=== PATIENT | male | born 1970 | race Asian ===

== ENCOUNTER 2016-11-17 21:08 | Emergency (ER) | payer OTHER ==
[~2016-11-17] VITALS: Ht 160 cm; Wt 79.4 kg
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
[2016-11-17 21:10] VITALS: BP 156/97; PULSE 96; RESP 17; TEMP 98.3; O2SAT 100
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
--- NOTE | 2016-11-17 21:17 | NUR ---
at bedside examining pt
[2016-11-17 21:25] VITALS: BP 147/86; PULSE 92; RESP 18; TEMP 98.3; O2SAT 99
--- NOTE | 2016-11-17 21:25 | NUR ---
Patient given written and verbal discharge instructions and verbalizes understanding. ER MD Maria discussed with patient the results and treatment provided. Patient in stable condition. ID arm band removed. No Rx given. Patient educated on pain management and to follow up with PMD. Pain Scale 0/10 Opportunity for questions provided and answered.
== END 2016-11-17 21:25 ==
LOC: SED 21:08
DX: S00.81XA Abrasion of other part of head, initial encounter (principal); R03.0 Elevated blood-pressure reading, without diagnosis of hypertension; Y04.0XXA Assault by unarmed brawl or fight, initial encounter; Y93.89 Activity, other specified; Y92.89 Other specified places as the place of occurrence of the external cause; Y99.8 Other external cause status
CPT/HCPCS: 99283